=== PATIENT | male | born 1945 | race Caucasian/White ===

== ENCOUNTER 2024-02-01 18:00 | Inpatient (IN) | payer OTHER, SELFPAY ==
[2024-02-01] VITALS (14 sets, daily range): BP systolic 25–167; BP diastolic 41–90; BMI 28.2
[2024-02-01] MEDS: NSS 1000 IV (12:13)
[2024-02-01] MEDS: TYLENOL 650 MG PO ×2 (12:14→23:02)
[2024-02-01 12:40] LABS: % Basophils 0.3 % (0-2); % Eosinophils 0.1 % (0-6); % Immature Granulocytes 0.4 % (0-0.5); % Lymphocytes 5.9 % (20.5-51.1); % Monocytes 10.2 % (1.7-9.3); % Neutrophils 83.1 % (42.2-75.2); Absolute Immature Granulocytes 0.1 10^3/uL (0-0.05); Absolute Lymphocytes 0.8 10^3/uL (1.2-3.4); Absolute Monocytes 1.4 10^3/uL (0.1-0.6); Absolute Neutrophils 11.5 10^3/uL (1.4-6.5); Hematocrit 39.4 % (39.0-52.0); Hemoglobin 13.6 g/dL (13.0-18.0); Mean Corp Hgb Conc. 34.5 g/dL (33.0-37.0); Mean Corpuscular Hgb 30.5 pg (27.0-31.0); Mean Corpuscular Volume 88.3 fL (80.0-94.0); Mean Platelet Volume 9.1 fL (7.4-10.4); Nucleated Red Blood Cells % 0 % (-); Platelet Count 234 10^3/uL (130-400); Red Blood Cell Count 4.46 10^6/uL (4.70-6.10); Red Cell Dist. Width 13.1 % (11.5-14.5); White Blood Cell Count 13.8 10^3/uL (4.8-10.8)
[2024-02-01 12:41] LABS: Lactic Acid 1.5 mmol/L (0.7-2.0)
[2024-02-01 12:42] LABS: ALT (SGPT) 23 U/L (0-50); AST (SGOT) 21 U/L (17-59); Alkaline Phosphatase 70 U/L (38-126); Blood Urea Nitrogen 24 mg/dl (9-20); Calcium 9.2 mg/dl (8.4-10.2); Carbon Dioxide 27 mmol/L (22-30); Chloride 100 mmol/L (98-107); Estimated Creatinine Clearance 44 ml/min; Glucose 117 mg/dl (70-99); Lipase 35 U/L (23-300); Potassium 4.5 mmol/L (3.5-5.1); Sodium 135 mmol/L (135-145); Total Bilirubin 1.1 mg/dl (0.2-1.3); Total Protein 6.8 g/dl (6.3-8.2); eGFR 56.23
--- NOTE | 2024-02-01 13:05 | ED.GENMED ---
History of Present Illness
General
Chief Complaint: Abdominal Symptoms
Source: patient
Exam Limitations: none
Time Seen by Provider: 02/01/24 11:55
Nursing documentation reviewed up to this point in time: agreed with
History of Present Illness
History of Present Illness:
78 y/o mwith h/o HTN, HLD, CAD stent
here with lower abd pain x 2 days
lack of appetite, low grade temp
no nausea, vomiting, diarrhea, constipatino, urinary symptmos
sent from family doctor to [facility] [place] for appe
no h/o divertic
no bloody stool
Past History
Past History
ED Past Medical History: HTN
ED Past Surgical History: None
Social History
Tobacco: Non-smoker
Alcohol: None
Review of Systems
Review of Systems
Allergies reviewed?: Yes
All Other Systems: Not applicable
Phy Exam
Physical Exam
Physical Exam:
GENERAL: Alert , in no apparent distress
EYE: pupils equal and reactive
NECK: Supple
ENT: o/p clr, mmm.
CARDIAC: Regular rate and rhythm .
LUNGS: Clear breath sounds bilaterally, no acute respiratory distress, no wheezes/rales/rhonchi
ABDOMEN: Soft, moderate tenderness right lower quadrant with mild voluntary guarding, no rebound, no cvat, normal bowel sounds
NEUROLOGICAL: Alert and oriented, no focal neuro deficits
SKIN: Warm and dry, skin intact.
MUSCULOSKELETAL: No edema, well perfused. neg larry's sign
PSYCH: Normal and appropriate interaction.
Course
Orders/Labs/Results
Orders:
Orders
02/01/24 12:09
0.9% Sodium Chloride 1000 ml [Nss] 1,000 ml IV BOLUS
Acetaminophen [Tylenol] 650 mg PO NOW STA
02/01/24 12:13
Complete Blood Count/With Diff Urgent
Comprehensive Metabolic Panel Urgent
Lactic Acid Urgent
Lipase Urgent
Urinalysis Reflex To Culture Urgent
Date Specimen was Collected: 02/01/24
Time Specimen was Collected: 12:10
02/01/24 12:51
CT Abd/Pel (IV only)-DH only Urgent
Comment:
Reason For Exam: rlq pain. eval appe
02/01/24 Dinner
Regular
At Your Request: Full Participation
Does patient need a safe tray?: No
02/01/24 15:16
Piperacillin/Tazo 3.375 Gram [Zosyn] 3.375 gram in 50 ml IV NOW
02/01/24 15:47
HYDROmorphone [Dilaudid] 0.25 mg IV PACU-Q5MPRN PRN
HYDROmorphone [Dilaudid] 0.5 mg IV PACU-Q5MPRN PRN
Meperidine [Demerol] 12.5 mg IV PACU-Q5MPRN PRN
Ondansetron Injectable [Zofran] 4 mg IV PACU-ONCEPRN PRN
Prochlorperazine [Compazine] 5 mg IV PACU-ONCEPRN PRN
Notify MD As Directed
Notify physician if: for SDS patients with known or suspected sleep obstructive sleep apnea, monitor in the
PACU.
Notify MD for any apneic/desaturation episodes
O2 Therapy [RESP] Urgent
Titrate/Wean O2 to maintain O2 sat greater than (%): 92
Special Instructions: -Provide supplemental oxygen to achieve O2 sat of 92% or greater.
-After 15 min, may wean O2 and discontinue if patient is able to maintain O2 sat of 92%
or greater during recovery period.
If patient is a discharge home, without oxygen therapy, notify anestheiologist if
unable to maintain O2 SAT of 92% or greater on room air for MD clearance.
02/01/24 16:00
Normosol (Mult Electrolytes) [Normosol-R] 1,000 ml IV PER PROTOCOL
02/01/24 16:47
Bupivacaine Pf 0.5% [Sensorcaine 0.5% Single Dose] 30 ml .ROUTE .STK-MED ONE
02/01/24 17:12
Fentanyl Citrate/Pf [Sublimaze] 100 mcg .ROUTE .STK-MED ONE
02/01/24 17:26
Dexamethasone Sod Phosphate [Decadron] 20 mg .ROUTE .STK-MED ONE
Lidocaine HCl/Pf [Xylocaine-Mpf 1% Vial] 50 mg .ROUTE .STK-MED ONE
Ondansetron Injectable [Zofran] 4 mg .ROUTE .STK-MED ONE
Propofol [Diprivan] 20 ml .ROUTE .STK-MED
Rocuronium Nathalie [Rocuronium] 50 mg .ROUTE .STK-MED ONE
02/01/24 17:33
OR Pathology Routine
Pre-Operative Diagnosis: acute appendicitis
Post-Operative Diagnosis: same
Operative Procedure: laparoscopic partial cecectomy
Surgeon: june
Circulating Nurse: julius
Specimen Type: appendix
02/01/24 17:43
Acetaminophen 1000MG/100Ml [Ofirmev] 1,000 mg in 100 ml .ROUTE .STK-MED
02/01/24 17:45
HYDROmorphone [Dilaudid] 1 mg .ROUTE .STK-MED ONE
Sugammadex Sodium [Bridion] 200 mg .ROUTE .STK-MED ONE
02/01/24 18:42
Admit Patient As Directed
Co-Sign Provider:
Level of Care: Post Proc/Surg Recovery
Assign to:: Medical/Surgical
Physician / Group: Dr. Love
Diagnosis: Acute appendicitis
Reason for Overnight Stay: Standard of Care
Code Status As Directed
Resuscitation Status: Full Code
HYDROmorphone [Dilaudid] 0.5 mg IV Q2HPRN PRN
Ondansetron Injectable [Zofran] 4 mg IV Q6HPRN PRN
Activity As Directed
Activity Level: Out of Bed-Early Mobility
Intake/ Output As Directed
Frequency: Per unit guidelines
Vital Signs As Directed
Frequency: Per unit guidelines
PRN Pain Medication Management As Directed
May give lesser potent ordered pain med per pt: Yes
preference::
Protocol:: Medication orders for pain may be administered in a
manner that supports deferring to patient preference
when the pt is:
- Requesting an ordered lesser potent pain medication.
Least to most potent pain medications are defined
as: acetaminophen < NSAID < tramadol < opioids
(morphine, oxycodone, hydromorphone).
- Requesting a lesser dose of the same medication IF
ORDERED.
- Requesting a less intrusive route of administration
if both routes are prescribed by the provider (PO <
IV).
02/01/24 18:43
Pneumatic Compression Sleeves As Directed
Type: Thigh high
DX Deep Vein Thrombosis Video Routine
02/01/24 18:44
Drains As Directed
Type: Placido Nichols
02/01/24 22:00
Piperacillin/Tazo 3.375 Gram [Zosyn] 3.375 gram in 50 ml IV Q6H
02/02/24 00:00
Acetaminophen [Tylenol] 650 mg PO Q6
02/02/24 05:58
Basic Metabolic Panel IN AM
Complete Blood Count/No Diff IN AM
02/02/24 10:15
Metoprolol [Lopressor] 50 mg PO BID
Tamsulosin [Flomax] 0.4 mg PO DAILY
02/02/24 11:00
Atorvastatin [Lipitor] 40 mg PO DAILY
02/02/24 18:00
Enoxaparin Sodium [Lovenox] 40 mg SC QPM
Abnormal Lab Results
02/01/24 02/02/24
12:13 05:58
WBC 13.8 H 10^3/uL 13.9 H 10^3/uL
(4.8-10.8) (4.8-10.8)
RBC 4.46 L 10^6/uL 4.20 L 10^6/uL
(4.70-6.10) (4.70-6.10)
Hgb 12.3 L g/dL
(13.0-18.0)
Hct 35.9 L %
(39.0-52.0)
Abs Immat Gran (auto) 0.1 H 10^3/uL
(0-0.05)
Absolute Neuts (auto) 11.5 H 10^3/uL
(1.4-6.5)
Absolute Lymphs (auto) 0.8 L 10^3/uL
(1.2-3.4)
Absolute Monos (auto) 1.4 H 10^3/uL
(0.1-0.6)
Neutrophils % 83.1 H %
(42.2-75.2)
Lymphocytes % 5.9 L %
(20.5-51.1)
Monocytes % 10.2 H %
(1.7-9.3)
Sodium 134 L mmol/L
(135-145)
BUN 24 H mg/dl 22 H mg/dl
(9-20) (9-20)
Glucose 117 H mg/dl 137 H mg/dl
(70-99) (70-99)
Urine Ketones 1+ A
(Negative)
02/02/24 05:58
02/02/24 05:58
Vital Signs
Initial and Last Documented VS:
Initial Vital Signs
Temp Pulse BP Pulse Ox
100 F 70 130/90 97
02/01/24 11:03 02/01/24 11:03 02/01/24 11:03 02/01/24 11:03
Last Documented Vital Signs
Temp Pulse Resp BP Pulse Ox
98.1 F 69 16 143/71 98
02/02/24 07:51 02/02/24 07:51 02/02/24 07:51 02/02/24 07:51 02/02/24 07:51
MDM/Problems Addressed
Differential Diagnosis Includes:
appe, divertic
MDM/Problems Addressed:
78 y/o M with h/o htn, hld
here with lower abd pain x 2 days, poor appetite, low grade temp
for w/u to r/o appe
no h/o divertic
pain worse with movement
nothing taken ttoday
no vomiting
tender RLQ
mild guarding, no rebound
wbc [address] scan
CT confirms acute appendicitis
d/w juan who saw pt and will take to the OR
zosyn
*Critical Care Note
Total Time (30-74mins, 75-104mins- exclusive of procedures): Not Applicable
ED Attending Note
-
Portions of this chart may have been created with voice recognition software.� Occasional wrong word or��sound alike� substitutions may have occurred due to the inherent limitations of voice recognition software.
Discharge Plan
Departure
Patient Disposition: Admit
Date of Disposition: 02/01/24
Time of Disposition: 15:25
Admit to: Med/Surg
Admit to doctor: june
Presentation/result/management discussed w/ accepting /DO: june
Patient with high blood pressure during this ER visit?: No
Condition: Fair
Covid-19: Not Applicable
Discharge Problem:
Acute appendicitis
Interventions
Interventions:
*Risk Screen - Suicide Last Done: 02/01/24 11:57
*General Assessment Last Done: 02/01/24 11:57
*Neglect/Abuse Screening Last Done: 02/01/24 11:57
ED- Fall Risk Assessment Last Done: 02/01/24 11:57
*Nursing Disposition Last Done: 02/01/24 16:47
EM-Rthxfs-Rnnqdbdsjp Assessment Last Done: 02/01/24 11:57
Discharge Date and Time
Discharge Date/Time: 02/01/24 17:16
[2024-02-01] MEDS: ZOSYN 50 IV ×2 (15:25→22:57)
--- NOTE | 2024-02-01 15:29 | HPS.HSE ---
Family Physician
-
Family Physician: NOT KNOW UNKNOWN - PT DOES
Chief Complaint
-
Right lower quadrant abdominal pain
History of Present Illness
This is a 78-year-old male originally from this area with no acute phloroglucinol here visiting his family. He has a history of hypertension, hyperlipidemia, CAD status post stents (ironically, placed here roughly 2 years ago while again visiting
family). He is presenting with a 2 days of worsening right lower quadrant abdominal pain with associated nausea, low-grade temperature. He denies any nausea vomiting diarrhea or constipation. He states his last colonoscopy was roughly 4 years ago
and was normal. He is on baby aspirin. He denies any other blood thinners. He did stop Brilinta about a year ago.
Medical History
Past Medical History
Past Medical History: Reports CAD, HTN and Hypercholesterolemia
Past Surgical History: Reports None
Social History
Tobacco: Non-smoker
Alcohol: None
Living: With Family
Employment: Retired
Family History
Family History: Not pertinent
Allergies / Home Medications
Allergies reflects when Allergies were last updated in [employer].
Home Medications with original date entered in [employer]
Allergy/Medication List:
No known drug allergies.
Aspirin 81 mg
Atorvastatin 40 mg
Hydralazine 25 mg
Losartan 25 mg
Metoprolol 50 mg
Tamsulosin 0.4 mg
Review of Systems
-
A 12 point ROS was completed and negative except as noted: Yes
Physical Exam
Vital Signs
Vital Signs
Temp Pulse BP Pulse Ox
100 F 70 154/65 98
02/01/24 11:03 02/01/24 11:03 02/01/24 12:00 02/01/24 12:15
Physical Exam
General: Well Developed
Respiratory: Non Labored Respirations
GI: Soft, Non Distended and Tender (Tender to palpation in the right lower quadrant, no rebound or guarding.)
Laboratory Results
-
02/01/24 12:13
02/01/24 12:13
Laboratory Results
Lactic Acid 1.5 mmol/L (0.7-2.0) 02/01/24 12:13
Total Bilirubin 1.1 mg/dl (0.2-1.3) 02/01/24 12:13
AST 21 U/L (17-59) 02/01/24 12:13
ALT 23 U/L (0-50) 02/01/24 12:13
Alkaline Phosphatase 70 U/L (38-126) 02/01/24 12:13
Lipase 35 U/L (23-300) 02/01/24 12:13
Data Reviewed
-
CT Scan: Image Personally Visualized and interpreted, Discussed with Physician, Discussed with Patient and Discussed with Family
Lab Data: Labs Reviewed by me, Discussed with Physician, Discussed with Patient and Discussed with Family
Impression/Plan
-
IMPRESSION: This is a 78-year-old male who presents with a 2-day history of right lower quadrant abdominal pain. Exam, imaging, blood work all consistent with acute appendicitis.
PLAN:
Will plan for laparoscopic appendectomy in the OR today.
N.p.o., IV fluids, IV Zosyn ordered.
Risks/Benefits/Alternatives, expected postoperative course and possible complications (bleeding, infection, injury to surrounding structures, acute/chronic pain) discussed at length. Patient wishes to proceed with surgery. All questions answered.
Consent obtained.
I spent roughly 60 minutes in total for the care of this patient today including direct patient care and counseling, reviewing labs, imaging, coordination of care, as well as documentation.
[2024-02-01 15:41] LABS: Urine Albumin Trace (Neg - Trace); Urine Bilirubin Negative (Negative); Urine Character Clear (Clear); Urine Color Yellow; Urine Glucose Negative (Negative); Urine Ketone 1+ (Negative); Urine Leukocyte Negative (Negative); Urine Nitrite Negative (Negative); Urine Occult Blood Negative (Negative); Urine Specific Gravity 1.005 (<1.030); Urine Urobilinogen Negative (Neg - 1+); Urine pH 6.5 (5.0-9.0)
--- NOTE | 2024-02-01 18:31 | W.SUR.PREOP ---
Pre-Operative Surgical Note
-
I have examined this patient prior to the performance of the scheduled procedure.
The patient's condition is unchanged from the time of the current History and
Physical and the patient is able to undergo the scheduled procedure.
--- NOTE | 2024-02-01 18:31 | W.IMMPOSTOP ---
Surgical Immed Post Op Note
-
Primary Surgeon: Fernie Love MD
Assisting Surgeon: None
Pre-op Diagnosis: Acute appendicitis
Post-op Diagnosis: Same
Procedure Performed: Laparoscopic partial cecectomy
Anesthesia Type: General
Specimen / Cultures: Appendix
Estimated Blood Loss: 7 cc
Complications: None
Operative Findings: Walled off perforated feculent appendicitis, contained to the right lower quadrant. After unroofing the small bowel the inflamed appendix with a perforation very close to the base was identified. The cecum was mobilized
posteriorly and laparoscopic partial cecectomy was performed using a muñoz load on an Endo KRISHNA stapler. A 19 Slovak round Ignacio drain was placed through the left lower quadrant port across the pelvis and up the right colic gutter.
POST OP PLAN:
Imaging: None
Labs: Routine AM
Diet: Regular
Analgesia: Tylenol 650mg q6 Lindsay, Kamla 5mg q6 PRN, Dilaudid 0.5mg q2h PRN
Neuro/vascular checks: q4h
AC/AP: Hold Therapeutic AC, Ok for DVT PPx
Activity: Ad Piper
Wound/Incisions/Drains: Routine, MAKAYLA to bulb suction
Abx: Antibiotics x 4 days
Dispo: RNF
--- NOTE | 2024-02-01 18:34 | OR.RPT ---
Operative Report
Operative Report
Patient Name: Noah Bernabe
: 1945
Date of Operation: 02/01/2024
Preoperative Diagnosis: Acute Appendicitis
Postoperative Diagnosis: Same
Procedure(s):
Laparoscopic partial cecectomy
Surgeon(s):
Dr. Love
Maintenance Helper Utility Engineer(s):
None
Anesthesia: General
Estimated Blood Loss: 3 cc
Urine Output: None
Drains/Lines/Implants: 19 Nepali round Ignacio drain
Specimens:
1. Appendix
HPI/Surgical Indications:
This is a 78-year-old male who presents with a 2 day history of abdominal pain. Exam, labs and imaging are consistent with acute appendicitis. Risks/Benefits/Alternatives were discussed at length, and the patient agreed to proceed with surgery.
Operative Findings: Walled off perforated feculent appendicitis, contained to the right lower quadrant. After unroofing the small bowel the inflamed appendix with a perforation very close to the base was identified. The cecum was mobilized
posteriorly and laparoscopic partial cecectomy was performed using a muñoz load on an Endo KRISHNA stapler. A 19 Nepali round Ignacio drain was placed through the left lower quadrant port across the pelvis and up the right colic gutter.
Procedure Description:
The patient was placed in the supine position, with the left arm tucked, and general anesthesia was induced. The abdomen was prepared and draped in a sterile fashion so as to expose the entire abdomen. A surgical time out was taken. Abdominal access
was obtained with a 5 mm infra-umbilical Sourav Entry. After confirming no injury on entrance, two additional 5mm ports were placed in the suprapubic area just off midline and in the left lower quadrant. The patient was placed in Trendelenberg with
the right slightly up. The base of the cecum was readily identified but the appendix seem to be covered by a small bowel, this was carefully peeled off of the area by blunt dissection. As we unroofed the appendix there was immediate spillage of
brown pus into the right lower quadrant/surgical field. The appendix was identified which appeared extremely hyperemic and inflamed. There was a clear perforation near what appeared to be the base of the appendix. There were is an appendicolith
identified and removed and the feculent contents were suctioned until clear. We then began by dividing the mesoappendix using bipolar energy device and tracing this all the way to the base of the appendix. It did seem like the perforation was very
close to the insertion point into the cecum and so we elected to do a partial cecectomy. This was performed by upsizing his umbilical port to a 12 mm port and then using a 45 mm muñoz load on an Endo KRISHNA stapler the base of the cecum along with the
appendix was divided. The appendix was placed in a specimen retrieval bag and passed off the field. Hemostasis was confirmed. A 19 Nepali round Ignacio drain was then introduced through the left lower quadrant port across the pelvis and up the right
colic gutter. It was secured to the skin using a 2-0 nylon suture. The ports were then removed under direct visualization and the umbilical port was closed with a [id number] 0-PDS. The skin for all ports were closed with interrupted
monocryls and covered with dermabond. The patient was awoken from anesthesia in good condition and transported to the recovery area.
I was the attending physician and performed the procedure with no assistance. I was present for all portions of the case
Fernie Love MD
[2024-02-02 03:10] VITALS: BP 162/64
[2024-02-02] MEDS: ZOSYN 50 IV ×4 (04:20→21:43)
[2024-02-02] MEDS: TYLENOL 650 MG PO ×4 (05:24→23:55)
[2024-02-02 06:21] LABS: Hematocrit 35.9 % (39.0-52.0); Hemoglobin 12.3 g/dL (13.0-18.0); Mean Corp Hgb Conc. 34.3 g/dL (33.0-37.0); Mean Corpuscular Hgb 29.3 pg (27.0-31.0); Mean Corpuscular Volume 85.5 fL (80.0-94.0); Mean Platelet Volume 9.1 fL (7.4-10.4); Platelet Count 216 10^3/uL (130-400); Red Cell Dist. Width 13.2 % (11.5-14.5); White Blood Cell Count 13.9 10^3/uL (4.8-10.8)
[2024-02-02 06:52] LABS: Blood Urea Nitrogen 22 mg/dl (9-20); Calcium 8.7 mg/dl (8.4-10.2); Carbon Dioxide 23 mmol/L (22-30); Chloride 100 mmol/L (98-107); Estimated Creatinine Clearance 47 ml/min; Glucose 137 mg/dl (70-99); Potassium 4.4 mmol/L (3.5-5.1); Sodium 134 mmol/L (135-145); eGFR > 60.00
[2024-02-02 07:51] VITALS: BP 143/71
--- NOTE | 2024-02-02 10:00 | W.PN.GS2 ---
Today's Communication / Plan
-
Home meds restarted.
IV antibiotics.
Assessment / Plan
-
This is a 78-year-old male visiting from [place] who presents with a 2-day history of right upper lower quadrant abdominal pain found to have acute appendicitis. POD #1 status post laparoscopic appendectomy for perforated appendicitis.
Okay for regular diet, did ask him to go slow as he is at risk for ileus.
Continue IV antibiotics will plan for 4-day course total.
Home meds restarted.
Anticipate discharge home potentially tomorrow. If his MAKAYLA clears up we will pull it before discharge.
Time Spent
Total Time Spent with Patient (in minutes): 20
Subjective Data
-
Date of Service: February 02, 2024
Interval Events:
No acute events overnight. Slept well. Pain Controlled. Denies Nausea/Vomiting, -bowel function. Tolerating diet.
Objective Data
-
Intake and Output
02/01/24 02/02/24 02/03/24
06:59 06:59 06:59
Intake Total 980 / 980
Output Total 570 / 570
Balance 410 / 410
Intake:
Oral fluids 480 / 480
IV fluids (Total) 400 / 400
Normosol 100 / 100
IV piggybacks 100 / 100
Output:
Drain Output (Total) 95 / 95
Left Abdomen Placido-Nichols 95 / 95
Urine, Voided 475 / 475
Vital Signs
Temp Pulse Resp BP Pulse Ox
98.1 F 69 16 143/71 98
02/02/24 07:51 02/02/24 07:51 02/02/24 07:51 02/02/24 07:51 02/02/24 07:51
Lab Results
02/02/24 05:58
02/02/24 05:58
Calcium 8.7 mg/dl (8.4-10.2) 02/02/24 05:58
Total Bilirubin 1.1 mg/dl (0.2-1.3) 02/01/24 12:13
AST 21 U/L (17-59) 02/01/24 12:13
ALT 23 U/L (0-50) 02/01/24 12:13
Alkaline Phosphatase 70 U/L (38-126) 02/01/24 12:13
Total Protein 6.8 g/dl (6.3-8.2) 02/01/24 12:13
Albumin 4.0 g/dl (3.5-5.0) 02/01/24 12:13
Physical Exam
-
GENERAL/NEURO: Awake, Alert, no distress
CHEST: Unlabored breathing on RA
ABDOMEN: Soft, Non-Tender, Non-Distended, incisions clean dry and intact. MAKAYLA with serous output with slight purulent tinge.
[2024-02-02] MEDS: LOPRESSOR 50 MG PO ×2 (10:41→20:01)
[2024-02-02] MEDS: LIPITOR 20 MG PO (10:41)
[2024-02-02] MEDS: FLOMAX 0.4 MG PO (10:41)
[2024-02-02 11:13] VITALS: BP 158/72
[2024-02-02 15:35] VITALS: BP 135/64
[2024-02-02] MEDS: LOVENOX 40 MG SC (17:21)
[2024-02-02 19:32] VITALS: BP 145/68
[2024-02-02 23:54] VITALS: BP 129/70
[2024-02-03] MEDS: ZOSYN 50 IV ×4 (04:44→21:25)
[2024-02-03] MEDS: TYLENOL 650 MG PO ×3 (06:22→17:40)
--- NOTE | 2024-02-03 07:03 | CM ---
met with patient and at bedside.patient lives with his in [place] in house with ramp in front to enter,bed and bath is on first level.patient amb i and is i with his adll's.dr powell is his pcp and he uses [facility] in [place].he has never
had a vn or been to ip rehab.
pmh:htn,nstemi,ckd stage 2.
patient adm for a lap appy for perforated appendix.he is on iv abx,if gabriel drain removed today patient can dc home with no needs.patient and to stay in hotel for several days then drive to [place].patient will have no needs.
[2024-02-03 07:31] VITALS: BP 131/92
[2024-02-03] MEDS: COZAAR 100 MG PO (09:25)
[2024-02-03] MEDS: FLOMAX 0.4 MG PO (09:25)
[2024-02-03] MEDS: LIPITOR 20 MG PO (09:25)
[2024-02-03] MEDS: LOPRESSOR 50 MG PO ×2 (09:26→20:55)
--- NOTE | 2024-02-03 11:02 | W.PN.GS2 ---
Today's Communication / Plan
-
Awaiting good return of bowel function.
Assessment / Plan
-
This is a 78-year-old male visiting from [place] who presents with a 2-day history of right upper lower quadrant abdominal pain found to have acute appendicitis. POD #2 status post laparoscopic appendectomy for perforated appendicitis.
On a regular diet but not passing a lot of flatus and distended. The patient denies any nausea currently but he is at high risk for ileus.
Continue antibiotics will plan for 4-day course total.
Home meds restarted.
Anticipate discharge home potentially tomorrow. If his MAKAYLA clears up we will pull it before discharge.
Time Spent
Total Time Spent with Patient (in minutes): 20
Subjective Data
-
Date of Service: February 03, 2024
Interval Events:
No acute events overnight. Slept well. Pain Controlled. Denies Nausea/Vomiting, some bowel function. Tolerating diet.
Objective Data
-
Intake and Output
02/02/24 02/03/24 02/04/24
06:59 06:59 06:59
Intake Total 980 / 980 1959 / 1960
Output Total 570 / 570 255 / 255 90 / 90
Balance 410 / 410 1705 / 1705 -90 / -90
Intake:
Oral fluids 480 / 480 1860 / 1860
IV fluids (Total) 400 / 400
Normosol 100 / 100
IV piggybacks 100 / 100 100 / 100
Output:
Drain Output (Total) 95 / 255 / 255 90 / 90
Left Abdomen Placido-Nichols 255 / 255 90 / 90
Urine, Voided 475 / 475
Other:
Number of approximated SMALL 1
amounts of urine
Number of approximated MODERATE 1
amounts of urine
Vital Signs
Temp Pulse Resp BP Pulse Ox
97.6 F 77 16 131/92 97
02/03/24 07:31 02/03/24 07:31 02/03/24 07:31 02/03/24 07:31 02/03/24 07:31
Lab Results
02/02/24 05:58
02/02/24 05:58
Calcium 8.7 mg/dl (8.4-10.2) 02/02/24 05:58
Total Bilirubin 1.1 mg/dl (0.2-1.3) 02/01/24 12:13
AST 21 U/L (17-59) 02/01/24 12:13
ALT 23 U/L (0-50) 02/01/24 12:13
Alkaline Phosphatase 70 U/L (38-126) 02/01/24 12:13
Total Protein 6.8 g/dl (6.3-8.2) 02/01/24 12:13
Albumin 4.0 g/dl (3.5-5.0) 02/01/24 12:13
Physical Exam
-
GENERAL/NEURO: Awake, Alert, no distress
CHEST: Unlabored breathing on RA
ABDOMEN: Soft, obese, distended, MAKAYLA with serous output (255cc)
[2024-02-03 15:24] VITALS: BP 129/67
[2024-02-03] MEDS: LOVENOX 40 MG SC (17:40)
[2024-02-03] MEDS: TUMS 1 TABLET PO (19:19)
[2024-02-03] MEDS: ZOFRAN 4 MG IV (22:34)
[2024-02-03] MEDS: TYLENOL PO (23:22)
[2024-02-03 23:39] VITALS: BP 144/93
[2024-02-04] MEDS: MYLICON 80 MG PO (01:34)
--- NOTE | 2024-02-04 04:30 | PTCARENOTE ---
Pt ambulated in the hallway with this RN,no flatus,abdomen remained softly distended.Tolerated activity well.
[2024-02-04] MEDS: ZOFRAN 4 MG IV (05:10)
[2024-02-04] MEDS: ZOSYN 50 IV ×4 (05:10→21:29)
[2024-02-04] MEDS: TYLENOL PO ×4 (05:42→23:58)
--- NOTE | 2024-02-04 05:42 | PTCARENOTE ---
Pt vomited 200mls of green bile at this time,stated he felt better,denies pain only esophageal burning,pt medicated with Zofran 4mg with relief.
[2024-02-04 07:39] VITALS: BP 133/67
[2024-02-04] MEDS: COZAAR PO (08:29)
[2024-02-04] MEDS: FLOMAX PO (08:30)
[2024-02-04] MEDS: LOPRESSOR PO (08:30)
[2024-02-04] MEDS: LIPITOR PO (08:30)
[2024-02-04 10:35] LABS: Hematocrit 36.7 % (39.0-52.0); Hemoglobin 12.9 g/dL (13.0-18.0); Mean Corp Hgb Conc. 35.1 g/dL (33.0-37.0); Mean Corpuscular Hgb 29.7 pg (27.0-31.0); Mean Corpuscular Volume 84.6 fL (80.0-94.0); Mean Platelet Volume 9.5 fL (7.4-10.4); Platelet Count 335 10^3/uL (130-400); Red Blood Cell Count 4.34 10^6/uL (4.70-6.10); White Blood Cell Count 11.3 10^3/uL (4.8-10.8)
[2024-02-04 10:42] LABS: Blood Urea Nitrogen 29 mg/dl (9-20); Calcium 9.2 mg/dl (8.4-10.2); Carbon Dioxide 28 mmol/L (22-30); Chloride 89 mmol/L (98-107); Estimated Creatinine Clearance 44 ml/min; Glucose 99 mg/dl (70-99); Potassium 4.2 mmol/L (3.5-5.1); Sodium 128 mmol/L (135-145); eGFR 56.23
--- NOTE | 2024-02-04 12:00 | PTCARENOTE ---
Addendum entered by Ratna Lucas RN 02/04/24 17:03:
pt c/o continued waves of nausea and esophageal burning, abd softly distended, no flatus or BM. Dr. Randle ordered #16 [place] sump to low intermittent suction in right nare. patient made aware. tube placed via 1st attempt with large amount
of brown/green fluid draining. patient reports he is feeling immediate relief of nausea and burning. Dr. Randel updated. will continue to monitor.
Original Note:
pt c/o continued waves of nausea and esophageal burning, abd softly distended, no flatus or BM. Dr. Randle ordered #16 [place] sump to low intermittent suction. patient made aware. tube placed via 1st attempt with large amount of
brown/green fluid draining. patient reports he is feeling immediate relief of nausea and burning. Dr. Randle updated. will continue to monitor.
--- NOTE | 2024-02-04 12:42 | W.PN.GS2 ---
Today's Communication / Plan
-
-- NGT decompression
-- X-ray abdomen for NGT placement and assessment of bowel distension
-- NPO, IVF
Assessment / Plan
-
This is a 78-year-old M POD #2 s/p laparoscopic appendectomy for perforated appendicitis.
Issues with postoperative ileus. Recommend NPO, NGT decompression, and IVF.
-- NGT decompression
-- X-ray abdomen for NGT placement and assessment of bowel distension
-- NPO, IVF
-- Continue antibiotics will plan for 4-day course total.
-- Maintain MAKAYLA
Subjective Data
-
Date of Service: February 04, 2024
Complains of reflux, abdominal distention, nausea and vomiting. No recent flatus or BM. Afebrile.
Objective Data
-
Intake and Output
02/03/24 02/04/24 02/05/24
06:59 06:59 06:59
Intake Total 1960 / 1960 2620 / 2620
Output Total 255 / 255 830 / 830
Balance 1705 / 1705 1790 / 1790
Intake:
Oral fluids 1860 / 1860 2520 / 2520
IV piggybacks 100 / 100 100 / 100
Output:
Emesis 200 / 200
Drain Output (Total) 255 / 255 280 / 280
Left Abdomen Placido-Nichols 255 / 255 280 / 280
Urine, Voided 350 / 350
Other:
Number of approximated SMALL 1
amounts of urine
Number of approximated MODERATE 1 2
amounts of urine
Number of immeasurable emeses? 1
Vital Signs
Temp Pulse Resp BP Pulse Ox
98.9 F 73 16 133/67 96
02/04/24 07:39 02/04/24 07:39 02/04/24 07:39 02/04/24 07:39 02/04/24 07:39
Lab Results
02/04/24 08:06
02/04/24 08:06
Calcium 9.2 mg/dl (8.4-10.2) 02/04/24 08:06
Total Bilirubin 1.1 mg/dl (0.2-1.3) 02/01/24 12:13
AST 21 U/L (17-59) 02/01/24 12:13
ALT 23 U/L (0-50) 02/01/24 12:13
Alkaline Phosphatase 70 U/L (38-126) 02/01/24 12:13
Total Protein 6.8 g/dl (6.3-8.2) 02/01/24 12:13
Albumin 4.0 g/dl (3.5-5.0) 02/01/24 12:13
Physical Exam
-
Gen: uncomfortable
Abd: soft, distended, tympanitic, tender to palpation, non-peritoneal, incisions c/d/i - no erythema or drainage, mild ecchymosis, MAKAYLA drain serosang
[2024-02-04] MEDS: NSS 1000 IV ×2 (13:48→23:56)
[2024-02-04] MEDS: PROTONIX IV 40 MG IV (13:49)
[2024-02-04 15:24] VITALS: BP 178/79
[2024-02-04] MEDS: LOPRESSOR 5 MG IV ×2 (17:07→23:57)
[2024-02-04] MEDS: LOVENOX 40 MG SC (17:09)
[2024-02-04 19:36] VITALS: BP 158/87
[2024-02-04 23:51] VITALS: BP 159/63
[2024-02-05 03:12] VITALS: BP 157/85
[2024-02-05] MEDS: ZOSYN 50 IV ×4 (04:29→22:07)
[2024-02-05] MEDS: LOPRESSOR 5 MG IV ×3 (05:59→17:53)
[2024-02-05] MEDS: TYLENOL PO ×3 (05:59→14:31)
[2024-02-05 07:00] VITALS: BP 133/49
[2024-02-05 07:57] LABS: Hematocrit 33.5 % (39.0-52.0); Hemoglobin 11.6 g/dL (13.0-18.0); Mean Corp Hgb Conc. 34.6 g/dL (33.0-37.0); Mean Corpuscular Hgb 29.8 pg (27.0-31.0); Mean Corpuscular Volume 86.1 fL (80.0-94.0); Platelet Count 276 10^3/uL (130-400); Red Blood Cell Count 3.89 10^6/uL (4.70-6.10); Red Cell Dist. Width 12.8 % (11.5-14.5); White Blood Cell Count 9.9 10^3/uL (4.8-10.8)
--- NOTE | 2024-02-05 09:09 | W.PN.GS2 ---
Today's Communication / Plan
-
-- NPO, IVF, NGT decompression
-- IVF
Assessment / Plan
-
This is a 78-year-old M POD #4 s/p laparoscopic appendectomy for perforated appendicitis.
Issues with postoperative ileus. Continue with NGT decompression for today. Can likely remove tomorrow and begin dietary advancement.
-- NPO, IVF, NGT decompression
-- IVF
-- Pain control: Tylenol, IV Dilaudid PRN
-- Continue antibiotics will plan for 4-day course total.
-- Maintain MAKAYLA
-- DVT: Lovenox
-- GI: PPI
Subjective Data
-
Date of Service: February 05, 2024
Reports significant improvement with passage of flatus and stool. Less abdominal pain and distention. No nausea or vomiting. No fevers.
Objective Data
-
Intake and Output
02/04/24 02/05/24 02/06/24
06:59 06:59 06:59
Intake Total 2620 / 2620 2240 / 2240
Output Total 830 / 830 2650 / 2650
Balance 1790 / 1790 -410 / -410
Intake:
Oral fluids 2520 / 2520 480 / 480
IV fluids (Total) 1440 / 1440
IV piggybacks 100 / 100 200 / 200
Amount instilled into GI Tube ( 120 / 120
Total)
[place] Sump 120 / 120
Output:
Emesis 200 / 200
Drain Output (Total) 280 / 280 100 / 100
Left Abdomen Placido-Nichols 280 / 280 100 / 100
Gastrointestinal tube output ( 1550 / 1550
Total)
[place] Sump 1550 / 1550
Urine, Voided 350 / 350 1000 / 1000
Other:
Number of approximated MODERATE 2 1
amounts of urine
Number of immeasurable emeses? 1
Vital Signs
Temp Pulse Resp BP Pulse Ox
98.4 F 69 17 133/49 97
02/05/24 07:00 02/05/24 07:00 02/05/24 07:00 02/05/24 07:00 02/05/24 07:00
Lab Results
02/05/24 07:40
Calcium 9.2 mg/dl (8.4-10.2) 02/04/24 08:06
Total Bilirubin 1.1 mg/dl (0.2-1.3) 02/01/24 12:13
AST 21 U/L (17-59) 02/01/24 12:13
ALT 23 U/L (0-50) 02/01/24 12:13
Alkaline Phosphatase 70 U/L (38-126) 02/01/24 12:13
Total Protein 6.8 g/dl (6.3-8.2) 02/01/24 12:13
Albumin 4.0 g/dl (3.5-5.0) 02/01/24 12:13
Physical Exam
-
Patient currently on the commode, abdominal exam was not performed
[2024-02-05 09:13] LABS: Calcium 8.4 mg/dl (8.4-10.2); Carbon Dioxide 25 mmol/L (22-30); Estimated Creatinine Clearance 52 ml/min; eGFR > 60.00
[2024-02-05 09:22] LABS: Blood Urea Nitrogen 20 mg/dl (9-20); Chloride 98 mmol/L (98-107); Glucose 77 mg/dl (70-99); Potassium 4.1 mmol/L (3.5-5.1); Sodium 130 mmol/L (135-145)
[2024-02-05] MEDS: NSS (PRESERVATIVE FREE) 10 ML IV (09:40)
[2024-02-05] MEDS: PROTONIX IV 40 MG IV (09:40)
[2024-02-05] MEDS: NSS 1000 IV ×2 (09:50→20:27)
[2024-02-05 11:00] VITALS: BP 188/78
[2024-02-05] MEDS: LOPRESSOR IV (12:30)
[2024-02-05] MEDS: TYLENOL 650 MG PO (14:31)
[2024-02-05 15:00] VITALS: BP 182/86
[2024-02-05] MEDS: APRESOLINE 5 MG IV ×2 (15:29→20:30)
[2024-02-05] MEDS: LOVENOX 40 MG SC (17:50)
[2024-02-05 19:05] VITALS: BP 193/81
[2024-02-05 23:00] VITALS: BP 176/88
[2024-02-06] MEDS: LOPRESSOR 5 MG IV ×4 (00:09→18:31)
[2024-02-06] MEDS: TYLENOL PO ×2 (00:12→06:16)
[2024-02-06] MEDS: FLOMAX 0.4 MG PO ×2 (00:41→21:51)
[2024-02-06 03:00] VITALS: BP 158/57
[2024-02-06] MEDS: ZOSYN 50 IV ×4 (03:51→21:51)
--- NOTE | 2024-02-06 04:28 | PTCARENOTE ---
Patient c/o urinary frequency and requested Flomax. TT to attending. Order obtained. Administered as per order. Patient expressed relief. Patient voided another 200ml and is sleeping quietly.
[2024-02-06] MEDS: NSS 1000 IV ×2 (05:55→16:16)
[2024-02-06 07:42] VITALS: BP 177/66
[2024-02-06] MEDS: NSS (PRESERVATIVE FREE) 10 ML IV (07:51)
[2024-02-06] MEDS: PROTONIX IV 40 MG IV (07:52)
[2024-02-06] MEDS: APRESOLINE 5 MG IV ×2 (07:55→16:33)
[2024-02-06 07:56] LABS: Hematocrit 34.1 % (39.0-52.0); Hemoglobin 11.7 g/dL (13.0-18.0); Mean Corp Hgb Conc. 34.3 g/dL (33.0-37.0); Mean Corpuscular Hgb 29.3 pg (27.0-31.0); Mean Corpuscular Volume 85.3 fL (80.0-94.0); Mean Platelet Volume 8.7 fL (7.4-10.4); Platelet Count 304 10^3/uL (130-400)
[2024-02-06] MEDS: FLOMAX PO (08:03)
[2024-02-06 08:19] LABS: Blood Urea Nitrogen 15 mg/dl (9-20); Calcium 8.3 mg/dl (8.4-10.2); Carbon Dioxide 19 mmol/L (22-30); Chloride 102 mmol/L (98-107); Estimated Creatinine Clearance 57 ml/min; Glucose 73 mg/dl (70-99); Potassium 3.8 mmol/L (3.5-5.1); Sodium 133 mmol/L (135-145); eGFR > 60.00
--- NOTE | 2024-02-06 10:12 | W.PN.GS2 ---
Today's Communication / Plan
-
Discontinue NG tube
Start sips and chips
Continue IV fluid
Continue to monitor for normal bowel function
Assessment / Plan
-
This is a 78-year-old M s/p laparoscopic appendectomy for perforated appendicitis.
Issues with postoperative ileus.
- NGT discontinue and begin dietary advancement.
- Started sips and chips as tolerated
- Pain control: Tylenol, IV Dilaudid PRN
- continue IV antibiotics and fluids
- Maintain MAKAYLA drain
- ok to resume flomax
- DVT: Lovenox
- GI: PPI
Time Spent
Total Time Spent with Patient (in minutes): 15 Minutes
Subjective Data
-
Date of Service: February 06, 2024
Interval Events:
No new complains, able to pass gas and some stools. Denies Nausea/Vomiting. Pain controlled at this time. Some discomfort with NG tube,overall improvement in abdominal pain.
Objective Data
-
Intake and Output
02/05/24 02/06/24 02/07/24
06:59 06:59 06:59
Intake Total 2240 / 2240 2760 / 2760
Output Total 2650 / 2650 2262 / 2262
Balance -410 / -410 498 / 498
Intake:
Oral fluids 480 / 480 240 / 240
IV fluids (Total) 1440 / 1440 2200 / 2200
IV piggybacks 200 / 200 200 / 200
Amount instilled into GI Tube ( 120 / 120 120 / 120
Total)
[place] Sump 120 / 120 120 / 120
Output:
Drain Output (Total) 100 / 100 222 / 222
Left Abdomen Placido-Nichols 100 / 100 222 / 222
Gastrointestinal tube output ( 1550 / 1550 540 / 540
Total)
[place] Sump 1550 / 1550 540 / 540
Urine, Voided 1000 / 1000 1500 / 1500
Other:
Number of approximated MODERATE 1
amounts of urine
Vital Signs
Temp Pulse Resp BP Pulse Ox
98.2 F 70 16 177/66 96
02/06/24 07:42 02/06/24 07:42 02/06/24 07:42 02/06/24 07:42 02/06/24 07:42
Lab Results
02/06/24 07:14
02/06/24 07:14
Calcium 8.3 mg/dl (8.4-10.2) L 02/06/24 07:14
Total Bilirubin 1.1 mg/dl (0.2-1.3) 02/01/24 12:13
AST 21 U/L (17-59) 02/01/24 12:13
ALT 23 U/L (0-50) 02/01/24 12:13
Alkaline Phosphatase 70 U/L (38-126) 02/01/24 12:13
Total Protein 6.8 g/dl (6.3-8.2) 02/01/24 12:13
Albumin 4.0 g/dl (3.5-5.0) 02/01/24 12:13
Physical Exam
-
GENERAL: Some discomfort due to NG tube,
NEURO: Awake, Alert, no distress
CHEST: Unlabored breathing on RA
ABDOMEN: Soft, Mild distension, mild tenderness to palpation. Surgical incisions clean dry and intact.
[2024-02-06 11:23] VITALS: BP 185/85
[2024-02-06] MEDS: TYLENOL 650 MG PO ×2 (11:30→17:55)
[2024-02-06 15:40] VITALS: BP 172/72
[2024-02-06] MEDS: LOVENOX 40 MG SC (17:55)
[2024-02-06 19:20] VITALS: BP 169/72
[2024-02-06] MEDS: COZAAR 100 MG PO (20:13)
[2024-02-06] MEDS: LOPRESSOR 50 MG PO (20:14)
[2024-02-06 23:29] VITALS: BP 124/90
[2024-02-07] VITALS (7 sets, daily range): BP systolic 152–184; BP diastolic 61–75
[2024-02-07] MEDS: TYLENOL PO ×5 (01:01→22:26)
[2024-02-07] MEDS: ZOSYN 50 IV ×3 (04:49→15:20)
[2024-02-07] MEDS: APRESOLINE 5 MG IV ×2 (05:31→16:01)
--- NOTE | 2024-02-07 06:59 | W.PN.GS2 ---
Today's Communication / Plan
-
Dietary advancement as tolerated
Assessment / Plan
-
This is a 78-year-old M s/p laparoscopic appendectomy for perforated appendicitis.
Issues with postoperative ileus.
- tolerated sips and chips well and passed gas and stools
- dietary advancement as tolerated
- Pain control: Tylenol, IV Dilaudid PRN
- continue IV antibiotics and fluids
- Maintain MAKAYLA drain
- continue flomax
- DVT: Lovenox
- GI: PPI
Time Spent
Total Time Spent with Patient (in minutes): 15
Subjective Data
-
Date of Service: February 07, 2024
Interval Events:
No new complains, able to pass gas and some watery stools. Denies Nausea/Vomiting. Pain controlled at this time. overall significant improvement in abdominal pain and feeling hungry.
Objective Data
-
Intake and Output
02/05/24 02/06/24 02/07/24
06:59 06:59 06:59
Intake Total 2240 / 2240 2760 / 2760 1330 / 1330
Output Total 2650 / 2650 2262 / 2262 460 / 460
Balance -410 / -410 498 / 498 870 / 870
Intake:
Oral fluids 480 / 480 240 / 240
IV fluids (Total) 1440 / 1440 2200 / 2200 1100 / 1100
IV piggybacks 200 / 200 200 / 200 200 / 200
Amount instilled into GI Tube ( 120 / 120 120 / 120 30 / 30
Total)
[place] Sump 120 / 120 120 / 120 30 / 30
Output:
Drain Output (Total) 100 / 100 222 / 222 210 / 210
Left 110 / 110
Left Abdomen Placido-Nichols 100 / 100 222 / 222 100 / 100
Gastrointestinal tube output ( 1550 / 1550 540 / 540
Total)
[place] Sump 1550 / 1550 540 / 540
Urine, Voided 1000 / 1000 1500 / 1500 250 / 250
Other:
Number of approximated MODERATE 1 3
amounts of urine
Number of approximated LARGE 1
amounts of urine
Vital Signs
Temp Pulse Resp BP Pulse Ox
98.2 F 67 18 184/74 98
02/07/24 03:15 02/07/24 05:31 02/07/24 03:15 02/07/24 05:31 02/07/24 03:15
Lab Results
02/06/24 07:14
02/06/24 07:14
Calcium 8.3 mg/dl (8.4-10.2) L 02/06/24 07:14
Total Bilirubin 1.1 mg/dl (0.2-1.3) 02/01/24 12:13
AST 21 U/L (17-59) 02/01/24 12:13
ALT 23 U/L (0-50) 02/01/24 12:13
Alkaline Phosphatase 70 U/L (38-126) 02/01/24 12:13
Total Protein 6.8 g/dl (6.3-8.2) 02/01/24 12:13
Albumin 4.0 g/dl (3.5-5.0) 02/01/24 12:13
Physical Exam
-
GENERAL: Comfortable sitting in the bed.
NEURO: Awake, Alert, no distress
CHEST: Unlabored breathing on RA
ABDOMEN: Soft, no distension, mild tenderness to palpation. Surgical incisions clean dry and intact. MAKAYLA drain present.
--- NOTE | 2024-02-07 08:26 | W.PN.GS2 ---
Today's Communication / Plan
-
Will advance to clears. If a more robust bowel function and less distended could advance to regular diet later today.
Assessment / Plan
-
This is a 78-year-old M POD #6 s/p laparoscopic appendectomy for perforated appendicitis. Expected ileus, requiring NG which has now been removed. Ileus is slowly resolving
- Clears today
- Pain control: Tylenol, IV Dilaudid PRN
- continue IV antibiotics and fluids
- Maintain MAKAYLA drain, will remove on discharge.
- continue flomax
- BP control
- DVT: Lovenox
Time Spent
Total Time Spent with Patient (in minutes): 20
Subjective Data
-
Date of Service: February 07, 2024
Interval Events:
No acute events overnight. Slept well. Pain Controlled. Denies Nausea/Vomiting, +bowel function. Tolerating diet.
Objective Data
-
Intake and Output
02/06/24 02/07/24 02/08/24
06:59 06:59 06:59
Intake Total 2760 / 2760 1330 / 1330
Output Total 2262 / 2262 460 / 460
Balance 498 / 498 870 / 870
Intake:
Oral fluids 240 / 240
IV fluids (Total) 2200 / 2200 1100 / 1100
IV piggybacks 200 / 200 200 / 200
Amount instilled into GI Tube ( 120 / 120 30 / 30
Total)
[place] Sump 120 / 120 30 / 30
Output:
Drain Output (Total) 222 / 222 210 / 210
Left 110 / 110
Left Abdomen Placido-Nichols 222 / 222 100 / 100
Gastrointestinal tube output ( 540 / 540
Total)
[place] Sump 540 / 540
Urine, Voided 1500 / 1500 250 / 250
Other:
Number of approximated MODERATE 3
amounts of urine
Number of approximated LARGE 1
amounts of urine
Vital Signs
Temp Pulse Resp BP Pulse Ox
98.1 F 66 18 155/70 98
02/07/24 07:00 02/07/24 07:00 02/07/24 07:00 02/07/24 07:00 02/07/24 07:00
Lab Results
02/06/24 07:14
02/06/24 07:14
Calcium 8.3 mg/dl (8.4-10.2) L 02/06/24 07:14
Total Bilirubin 1.1 mg/dl (0.2-1.3) 02/01/24 12:13
AST 21 U/L (17-59) 02/01/24 12:13
ALT 23 U/L (0-50) 02/01/24 12:13
Alkaline Phosphatase 70 U/L (38-126) 02/01/24 12:13
Total Protein 6.8 g/dl (6.3-8.2) 02/01/24 12:13
Albumin 4.0 g/dl (3.5-5.0) 02/01/24 12:13
Physical Exam
-
GENERAL/NEURO: Awake, Alert, no distress
CHEST: Unlabored breathing on RA
ABDOMEN: Soft, Non-Tender, distended, incisions clean dry and intact. MAKAYLA with serous output.
[2024-02-07] MEDS: PROTONIX IV IV (08:36)
[2024-02-07] MEDS: NSS (PRESERVATIVE FREE) IV (08:36)
[2024-02-07] MEDS: LOPRESSOR 50 MG PO ×2 (08:56→21:06)
[2024-02-07] MEDS: COZAAR 100 MG PO (08:56)
[2024-02-07] MEDS: NSS 1000 IV (09:00)
--- NOTE | 2024-02-07 14:26 | PN.CDI ---
CDI
- -
CDI:
Physician Documentation Request
Admit Date: 02/01/24 18:00
Dear General Surgery,
Patient admitted for appendicitis.
Laboratory Tests
02/02/24 02/04/24 02/05/24
05:58 08:06 07:40
Sodium 134 L 128 L 130 L
02/06/24
07:14
Sodium 133 L
Based on the above, could you clarify in the progress notes, the appropriate diagnosis, if significant, that supports the above abnormalities and additional evaluation, monitoring and/or treatment rendered:
Hyponatremia
Abnormal lab value insignificant
Other
Use of terms such as suspected, likely, concern for, or probable (associated with a specific diagnosis that is being evaluated, monitored, or treated as if it exists) are acceptable and can be coded in the inpatient setting, when documented at the
time of discharge.
Thank you,
Samara Zuniga RN, BSN
CDI Specialist
Available via [place] text
Please use your independent medical judgment in providing your response.
[2024-02-07] MEDS: LOVENOX 40 MG SC (17:01)
[2024-02-07] MEDS: NSS IV (18:32)
--- NOTE | 2024-02-07 19:24 | CON.HOSP ---
Family Physician
-
Family Physician: NOT KNOW UNKNOWN - PT DOES
Chief Complaint
-
high blood pressure
History of Present Illness
78-year-old male past medical history of CAD with stents, hypertension, hypercholesteremia admitted to the hospital for acute perforated appendicitis status post laparoscopic appendectomy with placement of MAKAYLA drain complicated by ileus with NG tube
placement which has since been removed. Patient currently on clear liquid diet.
Hospitalist consulted for elevated blood pressure. Losartan and metoprolol were resumed yesterday after being held since admission. Patient states he normally takes losartan in the evening and he got it yesterday morning.
Systolic blood pressure 190s today patient was given 5 mg hydralazine and blood pressure since in the 150s. Patiently denies any pain. Currently not on IV fluids.
Medical History
Past Medical History
Past Medical History: Reports Other (CAD with stents, hypertension, hypercholesteremia)
Past Surgical History: Reports Appendectomy
Social History
Tobacco: Non-smoker
Alcohol: None
Allergies / Home Medications
Allergies reflects when Allergies were last updated in [facility].
Home Medications with original date entered in [facility]
Allergy/Medication List:
Allergies
Allergy/AdvReac Type Severity Reaction Status Date / Time
No Known Allergies Allergy Verified 02/01/24 11:11
Home Medications
aspirin 81 mg tablet,delayed release 81 mg PO HS Blood clot prevention/tx 01/11/22
metoprolol tartrate 50 mg tablet 50 mg PO BID Heart disease/condition 01/11/22
tamsulosin 0.4 mg capsule 0.4 mg PO HS Urinary issue 01/11/22
acetaminophen 325 mg tablet 650 mg (2 x 325 mg) PO Q6HPRN PRN mild pain #14 tabs 02/01/24
atorvastatin 20 mg tablet 20 mg PO DAILY High Cholesterol 02/01/24
folic acid 400 mcg tablet 0.4 mg PO DAILY Supplement 02/01/24
ibuprofen 600 mg tablet 600 mg PO Q6H PRN pain #14 tabs 02/01/24
losartan 100 mg tablet 100 mg PO DAILY Blood Pressure 02/01/24
multivitamin 1 tab PO DAILY Supplement 02/01/24
tramadol 50 mg tablet 25 mg (1/2 x 50 mg) PO Q6HPRN PRN severe pain/breakthrough pain #8 tabs 02/01/24
vitamin A-vitamin C-vit E-min tablet 1 tab PO DAILY Supplement 02/01/24
Review of Systems
-
History Source: Patient
A 12 point Review of Systems was completed except as noted: Yes
Constitutional: Reports No Symptoms
EENT: Reports No Symptoms
Respiratory: Reports No Symptoms
Cardiac: Reports No Symptoms
Abdomen/GI: Reports No Symptoms
: Reports No Symptoms
Musculoskeletal: Reports No Symptoms
Skin: Reports No Symptoms
Neurological: Reports No Symptoms
Endocrine: Reports No Symptoms
Hematologic/Lymphatic: Reports No Symptoms
Psych: Reports No Symptoms
Physical Exam
Vital Signs
Vital Signs
Temp Pulse Resp BP Pulse Ox
98.0 F 63 18 156/72 97
02/07/24 15:00 02/07/24 16:01 02/07/24 15:00 02/07/24 18:40 02/07/24 15:00
Physical Exam
General: Well Developed, Well Nourished and No Apparent Distress
HEENT: Normocephalic, Moist Mucous Membranes and Atraumatic
Respiratory: Clear
Cardiac: S1/S2 and Regular Rhythm; Negative Murmur or Rub
GI: Soft, Non Tender, Non Distended and Normal Bowel Sounds
Rectal: Deferred by Provider
Musculoskeletal: No Clubbing, No Cyanosis and No Edema
Skin: Negative Rash
Neuro: Nonfocal/Grossly Intact
Laboratory Results
-
Laboratory Results
02/06/24 07:14
02/06/24 07:14
Lactic Acid 1.5 mmol/L (0.7-2.0) 02/01/24 12:13
Total Bilirubin 1.1 mg/dl (0.2-1.3) 02/01/24 12:13
AST 21 U/L (17-59) 02/01/24 12:13
ALT 23 U/L (0-50) 02/01/24 12:13
Alkaline Phosphatase 70 U/L (38-126) 02/01/24 12:13
Lipase 35 U/L (23-300) 02/01/24 12:13
Data Reviewed
-
Lab Data: Labs Reviewed
Old Records: Reviewed
Impression / Plan
-
IMPRESSION:
PLAN:
# Acute perforated appendicitis status post laparoscopic appendectomy with MAKAYLA drain
-Being managed by surgery
#Postoperative ileus with NG tube, since removed
-Patient currently on clears
# Hypertensive urgency
-Patient currently on losartan 100 mg and metoprolol 50 mg twice daily resumed yesterday
-Will add amlodipine 5 mg
-Continue as needed hydralazine
Coronary artery disease with history of stents
-Aspirin on hold
Hypercholesterolemia
-Normally on statin
[2024-02-07] MEDS: FLOMAX 0.4 MG PO (21:06)
[2024-02-08 02:08] VITALS: BP 154/68
--- NOTE | 2024-02-08 03:00 | PTCARENOTE ---
Received report from nightshift RN. Pt assessed, no complaints. Will continue to monitor.
[2024-02-08 03:50] VITALS: BP 127/53
[2024-02-08] MEDS: TYLENOL PO ×4 (06:12→17:06)
--- NOTE | 2024-02-08 06:55 | W.PN.GS2 ---
Addendum entered and electronically signed by Fernie Love MD 02/08/24 08:16:
I saw and examined the patient independently.
The resident's note was reviewed and I agree with the note, assessment and plan except where noted below.
Comment: This is a 78-year-old male postoperative day 7 from a laparoscopic appendectomy for perforated appendicitis. Expected ileus, requiring NG tube which is now removed his ileus is resolved. He tolerated clears yesterday. He is endorsing
passing flatus and having bowel movements. He is soft and not distended.
Will advance to a regular diet.
MAKAYLA drain removed at bedside.
Home meds reordered.
Hospitalist consulted for elevated blood pressure. Appreciate their recommendations. Amlodipine started, patient is still in the 190s. As needed hydralazine and metoprolol ordered.
If able to control blood pressure on oral medication could consider discharge later today versus tomorrow.
Original Note:
Today's Communication / Plan
-
Advancement of diet as tolerated
Assessment / Plan
-
This is a 78-year-old M POD #7 s/p laparoscopic appendectomy for perforated appendicitis. Expected ileus, requiring NG which has now been removed. Ileus is slowly resolving patient has been tolerating clear diet and able to pass flatus and stools.
- Able to tolerate clears
- Pain control: Tylenol, IV Dilaudid PRN
- Advancement of diet as tolerated
- Maintain MAKAYLA drain, will remove before discharge.
- continue flomax
- Continue oral meds for BP control with as needed hydralazine
- Follow-up with outpatient surgery office in 2 to 3 weeks
- DVT: Lovenox
Time Spent
Total Time Spent with Patient (in minutes): 15
Subjective Data
-
Date of Service: February 08, 2024
Interval Events:
No acute events overnight. Slept well. Pain Controlled. Denies Nausea/Vomiting, +bowel function and flatus. Tolerating clear liquid diet.
Objective Data
-
Intake and Output
02/06/24 02/07/24 02/08/24
06:59 06:59 06:59
Intake Total 2760 / 2760 1330 / 1330 1770 / 1770
Output Total 2262 / 2262 460 / 460 380 / 380
Balance 498 / 498 870 / 870 1390 / 1390
Intake:
Oral fluids 240 / 240 720 / 720
IV fluids (Total) 2200 / 2200 1100 / 1100 1000 / 1000
IV piggybacks 200 / 200 200 / 200 50 / 50
Amount instilled into GI Tube ( 120 / 120 30 / 30
Total)
[place] Sump 120 / 120 30 / 30
Output:
Drain Output (Total) 222 / 222 210 / 210 180 / 180
Left 110 / 110
Left Abdomen Placido-Nichols 222 / 222 100 / 100 180 / 180
Gastrointestinal tube output ( 540 / 540
Total)
[place] Sump 540 / 540
Urine, Voided 1500 / 1500 250 / 250 200 / 200
Other:
Number of approximated MODERATE 3 2
amounts of urine
Number of approximated LARGE 1 3
amounts of urine
Vital Signs
Temp Pulse Resp BP Pulse Ox
98.3 F 65 18 127/53 97
02/07/24 23:56 02/08/24 03:50 02/07/24 23:56 02/08/24 03:50 02/07/24 23:56
Calcium 8.3 mg/dl (8.4-10.2) L 02/06/24 07:14
Total Bilirubin 1.1 mg/dl (0.2-1.3) 02/01/24 12:13
AST 21 U/L (17-59) 02/01/24 12:13
ALT 23 U/L (0-50) 02/01/24 12:13
Alkaline Phosphatase 70 U/L (38-126) 02/01/24 12:13
Total Protein 6.8 g/dl (6.3-8.2) 02/01/24 12:13
Albumin 4.0 g/dl (3.5-5.0) 02/01/24 12:13
Physical Exam
-
GENERAL/NEURO: Awake, Alert, no distress
CHEST: Unlabored breathing on RA
ABDOMEN: Soft, Non-Tender, mild distension, incisions clean dry and intact. MAKAYLA with serous output.
[2024-02-08 07:00] VITALS: BP 189/75
[2024-02-08 07:13] LABS: % Basophils 0.6 % (0-2); % Eosinophils 5.1 % (0-6); % Immature Granulocytes 1.2 % (0-0.5); % Lymphocytes 15.2 % (20.5-51.1); % Monocytes 9.8 % (1.7-9.3); % Neutrophils 68.1 % (42.2-75.2); Absolute Basophils 0.1 10^3/uL (0-0.2); Absolute Eosinophils 0.5 10^3/uL (0-0.7); Absolute Immature Granulocytes 0.1 10^3/uL (0-0.05); Absolute Lymphocytes 1.5 10^3/uL (1.2-3.4); Absolute Neutrophils 6.8 10^3/uL (1.4-6.5); Hematocrit 34.7 % (39.0-52.0); Hemoglobin 12.1 g/dL (13.0-18.0); Mean Corp Hgb Conc. 34.9 g/dL (33.0-37.0); Mean Corpuscular Hgb 29.4 pg (27.0-31.0); Mean Corpuscular Volume 84.4 fL (80.0-94.0); Nucleated Red Blood Cells % 0 % (-); Platelet Count 355 10^3/uL (130-400); Red Blood Cell Count 4.11 10^6/uL (4.70-6.10); Red Cell Dist. Width 13.2 % (11.5-14.5)
[2024-02-08 07:30] LABS: Blood Urea Nitrogen 8 mg/dl (9-20); Calcium 8.4 mg/dl (8.4-10.2); Carbon Dioxide 25 mmol/L (22-30); Chloride 103 mmol/L (98-107); Estimated Creatinine Clearance 57 ml/min; Glucose 94 mg/dl (70-99); Magnesium 1.9 mg/dl (1.6-2.3); Phosphorus 2.8 mg/dl (2.5-4.5); Potassium 3.5 mmol/L (3.5-5.1); Sodium 135 mmol/L (135-145); eGFR > 60.00
[2024-02-08] MEDS: COZAAR 100 MG PO (07:34)
[2024-02-08] MEDS: LOPRESSOR 50 MG PO (07:41)
[2024-02-08] MEDS: NORVASC 5 MG PO (07:41)
--- NOTE | 2024-02-08 11:00 | CM ---
Reviewed chart, patient still requiring acute level care. Per nursing notes he is independent in room and self toileting. Plan remains for home when stable.
Plan: Case management will continue to follow and assist with discharge planning. Home when medically cleared.
[2024-02-08] MEDS: APRESOLINE 5 MG IV (11:20)
[2024-02-08] MEDS: PROCARDIA XL (EXTENDED RELEASE) 30 MG PO (12:09)
[2024-02-08 15:00] VITALS: BP 147/64
--- NOTE | 2024-02-08 16:14 | W.PN.HOSP.TC ---
Today's Communication/Plan
-
Blood pressure improved with addition of Procardia.
Stable for discharge from medical standpoint.
Assessment / Plan
Assessment / Plan
Impression:
Acute perforated appendicitis status post laparoscopic appendectomy and postoperative ileus all improved and diet has been advanced.
Hypertensive urgency, accelerated hypertension. Likely rebound while off regular antihypertensive regimen.
Metoprolol and valsartan reinstate within the addition of Procardia and reasonable blood pressure control. Will continue Procardia along with prior medications. Patient should follow-up with primary physician for adjustment of blood pressure
regimen. Please note that patient is also on Flomax that has been on hold empiric.
Anticipated Discharge: Today
Subjective/Interval History
-
Date of Service: February 08, 2024
Objective Data
-
Labs:
Laboratory Results
02/08/24
06:33
WBC 10.0
Hgb 12.1 L
Hct 34.7 L
Plt Count 355
Sodium 135
Potassium 3.5
Chloride 103
Carbon Dioxide 25
BUN 8 L
Creatinine 1.0
Glucose 94
Calcium 8.4
Vital Signs:
Vital Signs
Temp Pulse Resp BP Pulse Ox
97.9 F 96 18 147/64 96
02/08/24 15:00 02/08/24 15:00 02/08/24 15:00 02/08/24 15:00 02/08/24 15:00
I&O
02/07/24 02/08/24 02/09/24
06:59 06:59 06:59
Intake Total 1330 / 1330 1770 / 1770
Output Total 460 / 460 380 / 380 30 /
Balance 870 / 870 1390 / 1390 -30 / -30
Physical Exam
-
General: Well Developed and No Apparent Distress
HEENT: Normocephalic, Atraumatic and Moist Mucous Membranes
Respiratory: Clear to Auscultation
Cardiac: Regular Rhythm and S1/S2; Negative Murmur, Rub or Gallop
GI: Soft, Nontender, Nondistended and Normal Bowel Sounds; Negative Organomegaly
Rectal: Deferred by Provider
Musculoskeletal: No Clubbing, No Cyanosis and No Edema
Skin: Negative Rash
Neuro: Nonfocal/Grossly Intact
[2024-02-08] MEDS: LOVENOX SC (17:06)
--- NOTE | 2024-02-09 16:12 | W.DCSUMMARY ---
Discharge Summary
Discharge Data
Date of Admission: 02/01/24
Date of Discharge: 02/08/24
-
Pending Results: Yes
Hospital Course
Mr Bernabe presented with a 2 day history of right lower quadrant abdominal pain with CT imaging demonstrating acute appendicitis with a probable appendicolith. He was taken to the OR for management with perforated feculent appendicitis noted
intraoperatively with partial cecectomy preformed and MAKAYLA drain left in place. He developed ileus in the post operative period with NGT placement initially for decompression. Diet was eventually able to be advanced and well tolerated with passage of
flatus and stool. He was evaluated by the hospitalist service for blood pressure management with good control prior to discharge. MAKAYLA was removed prior to discharge after completion of a 7 day course of IV antibiotics.
Discharge Plan
-
Patient Disposition: Home (Routine Discharge)
Discharge Diagnosis/Procedures: Acute appendicitis. Laparoscopic appendectomy.
Condition: Good
Diet: No restrictions
Activity: No strenuous activity
Driving Restrictions: As prior to admission
Bathing Restrictions: OK to Shower
Activity Restrictions/Additional Instructions:
Instructions following Laparoscopic appendectomy
Please call [phone] if you have any questions or concerns after your surgery.
Wound Care:
Your incisions are covered with skin glue which will come off on its own in 5-10 days.
It is ok to shower the day after your surgery. Do not scrub the incisions, let soap and water wash over them and pat dry.
� Bruising around your incisions is normal.
� Using ice packs will help minimize this swelling.
� No swimming or soaking incisions for 1 week.
� Your stitches will dissolve and do not need to be removed.
Urinary retention:
If you are unable to urinate 6-8 hours after your surgery, please call [phone] to discuss further management.
Activity:
No heavy lifting more than 15 pounds for the next 3 weeks, then you may gradually lift heavier objects as tolerated by discomfort. Otherwise activity as tolerated by your comfort level.
Pain Management:
Use Tylenol, ibuprofen and ice packs to treat your pain.
� You may take 650 milligrams of Tylenol (Max 3 grams per day) every 6 hours, and 600 mg of ibuprofen also every 6 hours. (you can alternate them every 3 hours)
� You may use an ice pack to your incision as needed.
� If you still have pain not controlled by these measures, take your prescription pain medication if prescribed.
Medications:
You may resume your home medications.
Bowel Medications:
Prescription pain medication can make you constipated. If you take this medication, also take colace 100 mg twice daily (this is over the counter). If this is not sufficient, you may take Miralax (polyethylene glycol) to help move your bowels.
Diet:
After your procedure, there are no dietary restrictions.
Driving restrictions:
No driving if you are taking prescription pain medication or if you think your normal reaction time and attentiveness has been slowed by your surgery.
Things to Look out for:
Worsening Abdominal pain, redness or drainage from incision
Call Doctor for:
Please call if you notice worsening redness or drainage from incision(s) lasting longer than 5 days after your surgery, any foul-smelling drainage from the incision, pain not controlled by pain medications, persistent nausea and vomiting, or for any
fevers greater than 101.3 F. The number for questions/concerns is [phone]
Follow-up:
A follow-up appointment will be scheduled with your surgeon in 3-4 weeks. Please call prior to your appointment if you have any questions or concerns. [phone]
Referrals:
Fernie Love MD [Active] - in two to three weeks
UNKNOWN - PT DOES,NOT KNOW [Family Provider] -
Prescriptions:
New
acetaminophen [acetaminophen] 325 mg tablet
650 mg PO Q6HPRN PRN (Reason: mild pain) Qty: 14 0RF
tramadol 50 mg tablet
25 mg PO Q6HPRN PRN (Reason: severe pain/breakthrough pain) Qty: 8 0RF
ibuprofen 600 mg tablet
600 mg PO Q6H PRN (Reason: pain) Qty: 14 0RF
nifedipine [Procardia XL] 30 mg tablet extended release 24hr
30 mg PO DAILY Qty: 30 0RF
Continued
aspirin 81 mg Tablet,Delayed Release (Dr/Ec)
81 mg PO HS
tamsulosin 0.4 mg Capsule
0.4 mg PO HS
metoprolol tartrate 50 mg Tablet
50 mg PO BID
multivitamin Tablet
1 tab PO DAILY
atorvastatin 20 mg tablet
20 mg PO DAILY
folic acid 400 mcg Tablet
0.4 mg PO DAILY
losartan 100 mg tablet
100 mg PO DAILY
vitamin A-vitamin C-vit E-min Tablet
1 tab PO DAILY
Discharge Orders:
Discharge Patient (As Directed); Ordered 02/08/24
Ordered By: Eleazar Rao
Discharge Date and Time
Discharge Date/Time: 02/08/24 17:23
Print Language: ALBAN[place]
== END 2024-02-08 17:23 | disposition home or self-care (01) | DRG 330 ==
LOC: 3 WEST ACU 18:00
PROVIDERS: Physician Assistant; Surgery; ADMITTING PHYSICIAN Surgery; EMERGENCY PHYSICIAN Emergency Medicine; OTHER PHYSICIAN Hospitalist
PROC: 0DTJ4ZZ Resection of Appendix, Percutaneous Endoscopic Approach (ICD-10-PCS; 2024-02-01)
PROC: 0DBH4ZZ Excision of Cecum, Percutaneous Endoscopic Approach (ICD-10-PCS; 2024-02-01)
DX: K35.32 Acute appendicitis with perforation, localized peritonitis, and gangrene, without abscess (principal); K56.7 Ileus, unspecified; K91.89 Other postprocedural complications and disorders of digestive system; I16.0 Hypertensive urgency; I10 Essential (primary) hypertension; K38.1 Appendicular concretions; I25.10 Atherosclerotic heart disease of native coronary artery without angina pectoris; Z95.5 Presence of coronary angioplasty implant and graft; E78.00 Pure hypercholesterolemia, unspecified; Z79.82 Long term (current) use of aspirin; Z79.899 Other long term (current) drug therapy
CPT/HCPCS: 88304; 74018; 74177; 80048; 80053; 81003; 83605; 83690; 83735; 84100; 85025; 85027; 96361; 96365; 99285; C1776; Q9967